=== PATIENT | male | born 1940 | race Caucasian/White ===

== ENCOUNTER 2019-02-01 13:29 | Observation (INO) | payer OTHER, MEDICARE ==
[~2019-02-01] VITALS: Ht 180.3 cm; Wt 111.1 kg
[2019-02-01] MEDS ORDERED: Amlodipine Besy10 MG PO (14:31)
[2019-02-01] MEDS ORDERED: EPLE25 PO (14:32)
[2019-02-01] MEDS ORDERED: Cardura8 MG PO (14:32)
[2019-02-01] MEDS ORDERED: SILDENAFIL CIT100 MG PO (14:33)
--- NOTE | 2019-02-01 16:31 | NUR ---
PT TO DARIN VIA MAHIN FROM ER. History, Chart, Medications and Allergies reviewed before start of procedure.Patient confirms NPO status and agrees with scheduled surgery. Lungs clear T/O to Auscultation. Surgical site prepped with 2% Chlorhexidine cloth wipe.
--- NOTE | 2019-02-01 20:36 | NUR ---
2035: PT DEMONSTRATES GOOD TCDB EFFORT WITH ABD SPLINTING AND OCCASIONAL MOIST, NON-PRODUCTIVE COUGH; 96% ON 2L O2 VIA NC. RATES ABD DISTENTION/BLOAT PAIN 2/10 AND TOLERABLE AT THIS TIME. TOLERATING CLEARS, DENIES NAUSEA. CALL LIGHT IN REACH AND SIGNIFICANT OTHER AT BEDSIDE.
--- NOTE | 2019-02-01 23:27 | NUR ---
ASSUMED CARE OF PT. PT APPEARS TO BE SLEEPING IN BED, RESP E/U, NO DISTRESS NOTED. SPOUSE ASLEEP IN RECLINER IN ROOM. WILL CONT TO MONITOR AND TX PER ORDERS.
--- NOTE | 2019-02-02 07:40 | NUR ---
DENIES ANY NEED FOR PAIN MEDS AT THIS TIME, REPORTS FEELING "MUCH BETTER" DENIES ANY NAUSEA, STATES TOLERATING CLEAR LIQUIDS AND SOME CRACKERS WELL, CONT. TO MONITOR FOR ANY CHANGES.
--- NOTE | 2019-02-02 07:48 | NUR ---
POD 1 S/P LAP APPY. PT VSS STABLE T/O NIGHT; PT CONT TO RUN LOW GRADE TEMPS. DRESSINGS CDI, NO ACTIVE DRNG NOTED. PAIN MGD W/PO PAIN MEDS W/REP RELIEF. PT KASI SM AMT PO, NO C/O N/V. PT VOIDING URINE W/O DIFFICULTY. PRESENT IN ROOM, ASSISTING W/PT NEEDS. REPORT GIVEN TO DAY RN.
[2019-02-02] MEDS ORDERED: OXYC5 PO (12:58)
[2019-02-02] MEDS ORDERED: AMOCLA875 PO (12:58)
--- NOTE | 2019-02-02 14:11 | NUR ---
DC'D HOME, DC INSTRUCTIONS GIVEN, VERBALIZED UNDERSTANDING, DC'D HOME WITH .
--- NOTE | 2019-02-04 09:21 | NUR ---
02/04/19 0921 Emily Douglas VERIFICATIONS: EDIT CHART.
[2019-02-08] MEDS ORDERED: ACET500 PO (16:54)
[2019-02-10] MEDS ORDERED: Augmentin 875-1 EACH PO (10:41)
== END 2019-02-02 14:40 | disposition home or self-care (01) ==
LOC: ER 13:29 → SURS 13:30
PROVIDERS: ADMIT Surgery
PROC: 0DTJ4ZZ Resection of Appendix, Percutaneous Endoscopic Approach (ICD-10-PCS; principal; 2019-02-01 15:30)
DX: K35.891 Other acute appendicitis without perforation, with gangrene (principal); I10 Essential (primary) hypertension; Z85.46 Personal history of malignant neoplasm of prostate; Z88.8 Allergy status to other drugs, medicaments and biological substances; Z79.899 Other long term (current) drug therapy
CPT/HCPCS: 71045; 88304; 93005; 93010; 99285-25; A9270; J0330; J1650; J2250; J2405; J2543; J2704; J2710; J3010; J7120

== ENCOUNTER 2019-11-18 08:48 | Inpatient (IN) | payer OTHER, MEDICARE ==
[~2019-11-18] VITALS: Ht 175.3 cm; Wt 85.3 kg
[~2019-11-18 08:48] MED LIST: ACET500 PO; AMOCLA875 PO; Amlodipine Besy10 MG PO; Augmentin 875-1 EACH PO; Cardura8 MG PO; EPLE25 PO; OXYC5 PO; SILDENAFIL CIT100 MG PO
[2019-11-18] MEDS ORDERED: KCL (09:07)
[2019-11-18] MEDS ORDERED: OXYB5 PO (09:07)
[2019-11-18 09:08] LABS: Source, Urine Catheter
[2019-11-18 09:09] LABS: BASOPHILS ABSOLUTE AUTO 0.04 K/mm3 (0.00-0.23); BASOPHILS PERCENT AUTO 1 % (0-2); EOSINOPHILS ABSOLUTE AUTO 0.32 K/mm3 (0.00-0.68); EOSINOPHILS PERCENT AUTO 5 % (0-6); Hematocrit 43.4 % (37.0-53.0); Hemoglobin 14.9 g/dL (13.5-17.5); IMMATURE GRAN ABSOLUTE AUTO 0.02 K/mm3 (0.00-0.10); IMMATURE GRAN PERCENT AUTO 0 % (0-1); LYMPHOCYTES ABSOLUTE AUTO 1.09 K/mm3 (0.84-5.20); LYMPHOCYTES PERCENT AUTO 16 % (21-46); MONOCYTES ABSOLUTE AUTO 0.51 K/mm3 (0.16-1.47); MONOCYTES PERCENT AUTO 7 % (4-13); Mean Corpuscular HGB 32.7 pg (26.0-34.0); Mean Corpuscular HGB Conc 34.3 g/dL (31.5-36.5); Mean Corpuscular Volume 95 fL (80-100); Mean Platelet Volume 10.3 fL (9.1-12.4); NEUTROPHILS PERCENT AUTO 71 % (41-73); Platelet Count 85 K/mm3 (150-400); RDW Coefficient Variation 12.4 % (11.7-14.2); RDW Standard Deviation 43.6 fL (35.1-46.3); Red Blood Cell Count 4.56 M/mm3 (4.30-5.90); White Blood Cell Count 6.88 K/mm3 (4.00-11.30)
[2019-11-18 09:15] LABS: Appearance, Urine Clear (Clear); Bilirubin, Urine Neg (Neg); Blood, Urine 1+ (Neg); Color, Urine Yellow (P-Yellow); Glucose Qualitative, Urine Neg (Neg); Ketones, Urine Neg (Neg); Leukocyte Esterase, Urine Neg (Neg); Nitrite, Urine Neg (Neg); Protein, Urine Neg (Neg); Urobilinogen, Urine NORM (Normal)
[2019-11-18 09:27] LABS: Alanine Aminotransfer (ALT/SGP 28 U/L (12-78); Albumin, Blood 3.6 g/dL (3.4-5.0); Albumin/Globulin Ratio 1.2 (0.8-1.8); Alk Phos 106 U/L (50-136); Anion Gap 5 mmol/L (6-16); Aspartate Aminotrans (AST/SGOT 17 U/L (12-37); Bilirubin, Total 0.9 mg/dL (0.1-1.0); Blood Urea Nitrogen 21 mg/dL (8-24); Bun/Creatinine Ratio 18.8 (12.0-20.0); CO2, Blood 25 mmol/L (21-32); Calcium, Blood 8.7 mg/dL (8.5-10.1); Chloride, Blood 113 mmol/L (98-108); Creatinine, Blood 1.12 mg/dL (0.60-1.20); Glomerular Filtration Rate >60 (60-); Glucose, Blood 143 mg/dL (70-99); Potassium, Blood 3.5 mmol/L (3.5-5.5); Sodium, Blood 143 mmol/L (136-145); Total Protein, Blood 6.6 g/dL (6.4-8.2)
[2019-11-18 09:28] LABS: Troponin I 0.027 ng/mL (0.000-0.040)
[2019-11-18 09:30] LABS: Bacteria Few /hpf; Squamous Epithelial Cells Not Seen /hpf (Few); White Blood Cells, Urine 0-2 /hpf (0-5)
[2019-11-18 09:35] LABS: U Amphetamine Screen Not Detected; U Barbituate Screen Not Detected; U Benzodiazapine Screen Not Detected; U Buprenorphine Screen Not Detected; U Cannabinoids Screen Not Detected; U Cocaine Screen Not Detected; U Methadone Screen Not Detected; U Methamphetamine Screen Not Detected; U Opiates Screen Not Detected; U Oxycodone Screen Not Detected; U Phencyclidine Screen Not Detected; U Propoxyphene Screen Not Detected
--- NOTE | 2019-11-18 17:25 | NUR ---
SHIFT SUMMARY 1430 RECEIVED PT TO RM 311 VIA GURNEY FROM ER. PT ABLE TO TX SELF TO BED VERY SLOWLY AND CAREFULLY. PT SLIGHTLY UNSTEADY. P/T TO RM RIGHT AFTER ADMISSION, WORKING WITH PT. FWW WITH WHEELS OBTAINED TO USE WHILE HERE TO ASSIST WITH STABILITY. PT ADMITTED WITH CVA AND AMS. RECEIVED REPORT FROM AGATHA LÓPEZ, PT TO ER WITH GARBLED SPEECH, DISORIENTED, AND DIFFICULTY FINDING WORDS. HYPERTENSIVE, TOLERATING PO MEDS. SP EVAL DONE AFTER P/T COMPLETE. DIET ORDERED PER SP EVAL. REMAINS AT BS ASSISTING PT WITH URINAL AND MEALS AT THIS TIME. PT UP TO CHAIR TO EAT. CHAIR ALARM ON FOR SAFETY PT DOES NOT CALL. NO DEFICITS TO ANY EXTREMITIES, JUST COGNITIVE AND EXPRESSIVE APHASIA. IVF'S INFUSING PER EMAR. CALL LT IN REACH. BED ALARM ON FOR SAFETY WHEN IN BED.
[2019-11-19 04:51] LABS: BASOPHILS ABSOLUTE AUTO 0.04 K/mm3 (0.00-0.23); BASOPHILS PERCENT AUTO 1 % (0-2); EOSINOPHILS ABSOLUTE AUTO 0.36 K/mm3 (0.00-0.68); EOSINOPHILS PERCENT AUTO 5 % (0-6); Hematocrit 44.4 % (37.0-53.0); Hemoglobin 15.4 g/dL (13.5-17.5); IMMATURE GRAN ABSOLUTE AUTO 0.02 K/mm3 (0.00-0.10); IMMATURE GRAN PERCENT AUTO 0 % (0-1); LYMPHOCYTES ABSOLUTE AUTO 1.49 K/mm3 (0.84-5.20); LYMPHOCYTES PERCENT AUTO 22 % (21-46); MONOCYTES ABSOLUTE AUTO 0.55 K/mm3 (0.16-1.47); MONOCYTES PERCENT AUTO 8 % (4-13); Mean Corpuscular HGB 33.2 pg (26.0-34.0); Mean Corpuscular HGB Conc 34.7 g/dL (31.5-36.5); Mean Corpuscular Volume 96 fL (80-100); Mean Platelet Volume 10.6 fL (9.1-12.4); NEUTROPHILS PERCENT AUTO 64 % (41-73); Platelet Count 92 K/mm3 (150-400); RDW Coefficient Variation 12.4 % (11.7-14.2); RDW Standard Deviation 43.8 fL (35.1-46.3); Red Blood Cell Count 4.64 M/mm3 (4.30-5.90); White Blood Cell Count 6.76 K/mm3 (4.00-11.30)
[2019-11-19 05:08] LABS: Prothrombin Time Results 10.7 Sec (9.7-11.5)
[2019-11-19 05:11] LABS: Anion Gap 6 mmol/L (6-16); Blood Urea Nitrogen 15 mg/dL (8-24); Bun/Creatinine Ratio 15.7 (12.0-20.0); CO2, Blood 24 mmol/L (21-32); Calcium, Blood 8.9 mg/dL (8.5-10.1); Chloride, Blood 113 mmol/L (98-108); Creatinine, Blood 0.95 mg/dL (0.60-1.20); Glomerular Filtration Rate >60 (60-); Glucose, Blood 117 mg/dL (70-99); Magnesium, Blood 2.2 mg/dL (1.6-2.4); Potassium, Blood 3.4 mmol/L (3.5-5.5); Sodium, Blood 143 mmol/L (136-145)
--- NOTE | 2019-11-19 06:01 | NUR ---
SHIFT SUMMARY AOX4. ANSWERS ALL ORIENTATION QUESTIONS APPROPRIATE. FOLLOWS DIRECTIONS. HAS DIFFICULTY EXPRESSING THOUGHTS @TIMES, ALONG c EXPRESSIVE APHASIA & STUTTERING. EQUAL APPLICATION TESTER/PEDAL PUSHES, NO FACIAL DROOPING. DENIES PAIN, NAUSEA OR DYSPNEA. VSS. TELE RUNNING SB 44-55 T/O NIGHT WHILE PT WAS SOUND ASLEEP. CALL LIGHT IN REACH. WCTM.
[2019-11-19] MEDS ORDERED: CLOP75 PO (11:23)
[2019-11-19] MEDS ORDERED: ATOR80 PO (11:23)
--- NOTE | 2019-11-19 15:15 | NUR ---
SHIFT SUMMARY PT AWAKE THIS AM DURING SHIFT REPORT. NO C/O. STILL ANSWERING YES/NO MOSTLY AND HESITATING IN BETWEEN TRYING TO FIND WORDS. PT SEEMED TO IMPROVE SOME THOUGH. MOVING EASIER, USING URINAL ON HIS OWN. ASKED "WHEN IS BREAKFAST", FIRST THING. PT ABLE TO EAT W/O ANY DIFFICULTY NOTED. DR PORTILLO TO AT SAME TIME THIS AM. DR PORTILLO SPENT A GREAT DEAL OF TIME WITH PT AND EXPLAINING DX, CURRENT STATUS, TREATMENTS TO CONTINUE, AND REASONING FOR EACH. DR PORTILLO REVIEWED THEM SEVERAL TIMES TO MAKE SURE THEY UNDERSTOOD. PT AND AGREEABLE TO D/C PLAN AND FOLLOW UP. PT STARTED ON NEW MEDICATIONS; SEE ORDERS. MEDICATIONS FAXED PER REQUEST. PT ABLE TO WORK WITH SP THERAPY THIS AM WELL P/T. IV'S AND TELE MX D/C'D PER ORDERS. PT ABLE TO GET DRESSED. VERY IMPULSIVE ONCE DRESSED. REPORTED PT HAS BEEN IMPULSIVE SINCE THE STROKE. PT WANTS TO F/U WITH SP TX AND P/T THRU [facility]. PT ASSISTED TO W/C WITH BESIDE HIM AND TAKEN OUT BY CRAYON MOLDING MACHINE OPERATOR TO 'S CAR. PT INSTRUCTED NOT TO DRIVE UNTIL CLEARED BY PCP, PER D/C INSTRUCTIONS. VERBALIZED UNDERSTANDING.
--- NOTE | 2019-11-19 18:13 | NUR ---
Initial spiritual care note: I met with Manda and his , Staci this morning before he was discharged. Lashaun appeared unable to speak in clear sentances. Staci reported home and told me "I have already seen improvement this morning." Both report hope for recovery to the point of continuing on with their lifestyle. This appears to be a strong marriage. They are non-sikh, but responded well to encouragement and affirmation of obvious love.
[2019-11-22 06:09] LABS: DRVVT 61.4 sec (0.0-47.0); DRVVT CONFIRM 1.6 ratio (0.8-1.2); DRVVT MIX 48.4 sec (0.0-47.0); LUPUS REFLEX INTERPRETATION Comment: (.); PT 1:1NP 10.6 sec (9.6-11.5); PTT-LA 33.5 sec (0.0-51.9); THROMBIN TIME 16.6 sec (0.0-23.0)
== END 2019-11-19 12:45 | disposition home or self-care (01) | DRG 66 ==
LOC: ER 08:48 → MEDS 12:33
PROVIDERS: Physician Assistant; ADMIT Family Medicine
DX: I63.9 Cerebral infarction, unspecified (principal); R47.01 Aphasia; R47.81 Slurred speech; I16.0 Hypertensive urgency; I10 Essential (primary) hypertension; D69.6 Thrombocytopenia, unspecified; N52.9 Male erectile dysfunction, unspecified; Z88.8 Allergy status to other drugs, medicaments and biological substances; Z87.891 Personal history of nicotine dependence; Z79.899 Other long term (current) drug therapy; Z79.891 Long term (current) use of opiate analgesic; Z85.46 Personal history of malignant neoplasm of prostate
CPT/HCPCS: 36415; 51701; 70450; 70496; 70498; 80048; 80053; 81001; 82947; 83036; 83090; 83735; 84443; 84484; 85025; 85384; 85610; 85611; 85613; 85651; 85670; 85730; 85732; 86038; 86147; 92523; 92610; 93005; 93010; 93306; 97116; 97161; 99285-25; A9270; A9270-GY; J0360; J1650; J7030; Q9967